=== PATIENT | female | born 1990 | race African-American/Black ===

== ENCOUNTER 2019-12-27 12:30 | Emergency (ER) | payer OTHER ==
[2019-12-27 13:26] VITALS: BP 115/59; PULSE 89; TEMP 98; BMI 33.3
--- NOTE | 2019-12-27 14:19 | PDOC ---
History of Present Illness - General Chief Complaint: Cold Symptoms Stated Complaint: COLD SYMPSTOM Time Seen by Provider: 12/27/19 14:06 - History of Present Illness Initial Comments: 12/27/19 14:17 29-year-old female with flulike symptoms x2 days and a positive flu contact at home Past History - Past Medical History Allergies/Adverse Reactions: Allergies Allergy/AdvReac Type Severity Reaction Status Date / Time No Known Allergies Allergy Verified 12/27/19 13:21 Home Medications: Ambulatory Orders Oseltamivir Phosphate [Tamiflu] 75 mg PO BID #10 capsule 12/27/19 COPD: No Other medical history: fibroids, endometriosis - Surgical History Abdominal Surgery: Yes (complicated c section) - Psycho Social/Smoking Cessation Hx Smoking History: Never smoked Review of Systems - Review of Systems Constitutional: Yes: Fever HEENTM: Yes: Nose Congestion Respiratory: Yes: Cough *Physical Exam - Vital Signs Last Vital Signs Temp Pulse Resp BP Pulse Ox 98 F 89 18 115/59 L 97 12/27/19 13:22 12/27/19 13:22 12/27/19 13:22 12/27/19 13:22 12/27/19 13:22 - Physical Exam 12/27/19 14:18 GENERAL: The patient is awake, alert, and fully oriented, in no acute distress. HEAD: Normal with no signs of trauma. EYES: sclera anicteric, conjunctiva clear. ENT: Ears normal tympanic membranes normal oropharynx clear uvula midline NECK: Normal range of motion LUNGS: Breath sounds equal, clear to auscultation bilaterally. No wheezes, and no crackles. HEART: S1 and S2 without murmur, rub or gallop. ABDOMEN: Soft, nontender, normoactive bowel sounds. No guarding, no rebound. No masses. EXTREMITIES: Normal range of motion, no edema. No clubbing or cyanosis. No cords, erythema, or tenderness. NEUROLOGICAL: Cranial nerves II through XII grossly intact. PSYCH: Normal mood, normal affect. SKIN: Warm, Dry, normal turgor, no rashes or lesions noted. Medical Decision Making - Medical Decision Making 12/27/19 14:18 Tamiflu for influenza follow-up with Primary care physician Discharge - Discharge Information Problems reviewed: Yes Clinical Impression/Diagnosis: Influenza-like illness Condition: Stable Disposition: HOME - Admission No - Follow up/Referral Referrals: ON STAFF,NOT [Primary Care Provider] - - Patient Discharge Instructions Additional Instructions: Tylenol Motrin as directed for fever and body aches. Return to the emergency room for worsening symptoms and without fail follow-up with your primary care physician in 1 to 2 days for further evaluation and treatment options. Please take the Tamiflu as directed. - Post Discharge Activity
== END 2019-12-27 14:27 | disposition home or self-care (01) ==
LOC: JERFT 12:30
DX: J11.1 Influenza due to unidentified influenza virus with other respiratory manifestations (principal); Z86.2 Personal history of diseases of the blood and blood-forming organs and certain disorders involving the immune mechanism; Z87.42 Personal history of other diseases of the female genital tract
CPT/HCPCS: 99282-25